=== PATIENT | female | born 1950 | race Caucasian/White ===

== ENCOUNTER → 2016-09-02 | Outpatient (CLI) | payer MEDICARE ==
[~2016-09-02] MED LIST: AMLO5TAB2 PO; ANAS1TAB PO; ASPI-13 PO; CETI10TA18 PO; CETI10TA24 PO; CHEMO DRUGS; FAMO10TA31 PO; HYDR1TAB12 PO; LEVO75TA5 PO; LISI1TAB5 PO; METO-93 PO; ONDA-40 PO; PROC10TA PO
== END | disposition home or self-care (01) ==
LOC: CFH 09:37
PROVIDERS: ATTEND Internal Medicine Hematology & Oncology
DX: Z13.820 Encounter for screening for osteoporosis (principal); M81.0 Age-related osteoporosis without current pathological fracture
CPT/HCPCS: 77080

== ENCOUNTER 2018-08-16 14:30 | Emergency (ER) | payer MEDICARE ==
[~2018-08-16] VITALS: Ht 152.4 cm; Wt 89.0 kg
[~2018-08-16 14:30] MED LIST changes: +AMLO-150 PO; -AMLO5TAB2 PO; -HYDR1TAB12 PO; +HYDR1TAB13 PO; -ONDA-40 PO; +ONDA8TAB15 PO; -PROC10TA PO; +PROC10TA2 PO
--- NOTE | 2018-08-16 14:58 | NUR ---
Pt wheeled to room with this RN. [id number]-[id number] with pt.
[2018-08-16] MEDS ORDERED: PLEASE ENTER HEIGHT AND WEIGHT MC SCH (15:00)
[2018-08-16] MEDS ORDERED: SODIUM CHLORIDE FLUSH 10ML SYR IVF ONE (15:00)
--- NOTE | 2018-08-16 15:01 | NUR ---
XR at bedside.
--- NOTE | 2018-08-16 15:15 | NUR ---
PIV started, labs drawn. Pt placed on all monitors, a-fib with RVR noted.
--- NOTE | 2018-08-16 15:20 | NUR ---
Dr. Kang at bedside to evaluate pt. Pt states that at 0800 this morning she had gotten off the phone with her daughter and suddenly felt her heart start "fluttering." Pt went to this afternoon and was found to be in rapid a-fib. Pt presents to ED and is in a-fib at a rate from 120s-150s. All other VS WNL.
[2018-08-16] MEDS ORDERED: PROPOFOL 10 MG/ML, 20ML IV ONE (15:30)
[2018-08-16] MEDS ORDERED: PROPOFOL 10 MG/ML, 20ML ONE (15:36)
[2018-08-16 15:37] LABS: BASOPHILS # (AUTO) 0.04 x10^3/uL (0-0.1); BASOPHILS % (AUTO) 0 % (0-1); EOSINOPHILS # (AUTO) 0.01 x10^3/uL (0-0.4); EOSINOPHILS % (AUTO) 0 % (1-7); LYMPHOCYTES # (AUTO) 1.85 x10^3/uL (1-3.4); LYMPHOCYTES % (AUTO) 18 % (22-44); MD NO; MEAN CORPUSCULAR HEMOGLOBIN 30.1 pg (27.0-34.8); MEAN CORPUSCULAR HGB CONC 32.8 g/dL (32.4-35.8); MEAN CORPUSCULAR VOLUME 91.6 fL (80-100); MEAN PLATELET VOLUME 7.9 fL (7.4-10.4); MONOCYTES % (AUTO) 11 % (2-9); NEUTROPHILS # (AUTO) 7.06 x10^3/uL (1.8-6.8); NEUTROPHILS % (AUTO) 70 % (42-75); PLATELET COUNT 404 x10^3/uL (130-400); RED CELL DISTRIBUTION WIDTH 14.5 % (9.6-15.2)
--- NOTE | 2018-08-16 15:40 | NUR ---
EDT at bedside, pt placed on pads and aware of plan to cardiovert.
[2018-08-16 15:47] LABS: ALBUMIN 3.6 g/dL (3.4-5.0); ANION GAP 4 mmol/L (5-15); CALCIUM 8.3 mg/dL (8.5-10.1); CHLORIDE 110 mmol/L (98-107)
[2018-08-16 15:52] LABS: TROPONIN I 0.026 ng/mL (0.000-0.045)
--- NOTE | 2018-08-16 16:02 | NUR ---
Dr. Kang aware that consent are signed and pt is ready for cardioversion.
--- NOTE | 2018-08-16 16:20 | NUR ---
Dr. Kang at bedside for cardioversion.
--- NOTE | 2018-08-16 16:41 | NUR ---
Cardioversion successful, pt back to baseline, HR NSR 65, all other VS WNL. [id number] at bedside. Repeat EKG complete. 120 mg propofol wasted with RNRekha.
--- NOTE | 2018-08-16 17:20 | NUR ---
Dr. Kang at bedside to discuss ED findings and POC.
[2018-08-16 17:53] VITALS: BP 118/68
--- NOTE | 2018-08-16 17:53 | NUR ---
Patient/Caregiver given discharge instructions and they have confirmed that they understand the instructions. Patient ambulatory with steady gait.
== END 2018-08-16 17:58 | disposition home or self-care (01) ==
LOC: ED 16:11
DX: I48.0 Paroxysmal atrial fibrillation (principal); I10 Essential (primary) hypertension; E03.9 Hypothyroidism, unspecified; K21.9 Gastro-esophageal reflux disease without esophagitis; F32.9 Major depressive disorder, single episode, unspecified
CPT/HCPCS: 36415; 71045; 80048; 82040; 84484; 85025; 92960; 93005; 99152; 99291